=== PATIENT | male | born 1975 | race Caucasian/White ===

== ENCOUNTER 2024-06-04 15:59 | Observation (INO) | payer BC ==
[2024-06-04 16:55] LABS: BASOPHILS PERCENT AUTO 0.3 % (0.0-1.0); EOSINOPHILS ABSOLUTE AUTO 0.1 K/mm3 (0.0-0.4); EOSINOPHILS PERCENT AUTO 0.8 % (0.0-6.0); HEMATOCRIT 44.9 % (42.0-52.0); HEMOGLOBIN 15.6 gm/dl (14.0-18.0); IMMATURE GRAN ABSOLUTE AUTO 0.06 K/mm3 (0.00-0.05); IMMATURE GRAN PERCENT AUTO 0.5 % (0.0-0.4); LYMPHOCYTES PERCENT AUTO 17.4 % (24.0-44.0); MEAN CORPUSCULAR HEMOGLOBIN 29.1 pg (28.0-32.0); MEAN CORPUSCULAR HGB CONC 34.7 g/dl (32.0-36.0); MEAN CORPUSCULAR VOLUME 83.8 fl (83.0-99.0); MEAN PLATELET VOLUME 9.8 fl (9.4-12.4); MONOCYTES ABSOLUTE AUTO 0.7 K/mm3 (0.0-0.8); MONOCYTES PERCENT AUTO 6.5 % (0.0-8.0); NEUTROPHILS ABSOLUTE AUTO 8.3 K/mm3 (1.8-7.7); NEUTROPHILS PERCENT AUTO 74.5 % (41.0-71.0); PLATELET COUNT,PLT 243 K/mm3 (150-400); RED BLOOD CELL COUNT 5.36 M/mm3 (4.52-5.90); WHITE BLOOD CELL COUNT,WBC 11.18 K/mm3 (3.9-11.3)
[2024-06-04] MEDS ORDERED: Sodium Chloride 0.9% 100 ML IV SCH (17:00)
[2024-06-04] MEDS: Iopamidol 755 Mg/ML 100 ML Bottle IVPUSH ONE (17:03)
[2024-06-04 17:13] LABS: INR 0.99; PROTHROMBIN TIME 10.5 SECONDS (9.7-12.0)
[2024-06-04 17:29] LABS: A/G RATIO 1.1 (1-2); ALBUMIN 4.2 g/dl (3.4-5.0); ANION GAP 17.4 (5-15); BILIRUBIN TOTAL 0.5 mg/dL (0.2-1.0); BUN/CREATININE RATIO 8.2 (14-18); CALCIUM 9.7 mg/dL (8.5-10.1); CREATININE 1.7 mg/dL (0.7-1.3); EST CRCL DRUG DOSING (CG) 55.64 mL/min; MAGNESIUM 2.3 mg/dL (1.8-2.4); POTASSIUM,K 3.4 mEq/L (3.5-5.1); PROTEIN TOTAL,TP 8.2 g/dl (6.4-8.2)
[2024-06-04] MEDS: Acetaminophen 325 MG Tab PO ONE (18:50)
[2024-06-04] MEDS: Potassium Chloride 20 MEQ Tab.ER PO ONE (18:50)
[2024-06-04 19:43] LABS: APPEARANCE,URINE CLEAR (Clear); BILIRUBIN,URINE NEGATIVE (Negative); COLOR,URINE YELLOW (Yellow); GLUCOSE,URINE NEGATIVE (Negative); KETONES,URINE NEGATIVE (Negative); LEUKOCYTE ESTERASE,URINE NEGATIVE (Negative); NITRITE,URINE NEGATIVE (Negative); OCCULT BLOOD,URINE NEGATIVE (Negative); PH,URINE 5.5 (5.0-8.0); PROTEIN,URINE NEGATIVE (Negative); UROBILINOGEN,URINE 0.2 (0.2-1.0)
[2024-06-04] MEDS ORDERED: Labetalol 100 MG/20 ML MDV IVPUSH PRN (21:05)
[2024-06-04] MEDS ORDERED: Sennosides/Docusate Sodium 50-8.6 MG Tab PO PRN (21:10)
[2024-06-04] MEDS ORDERED: Ondansetron 4 MG/2 ML SDV IV PRN (21:10)
[2024-06-04] MEDS ORDERED: Melatonin 3 MG Tab PO PRN (21:10)
[2024-06-04] MEDS ORDERED: oxyCODONE 5 MG Tab PO PRN (21:10)
[2024-06-04] MEDS ORDERED: Morphine 2 MG/ML SYRINGE IVPUSH PRN (21:10)
[2024-06-05 04:54] LABS: HEMATOCRIT 42.8 % (42.0-52.0); HEMOGLOBIN 14.7 gm/dl (14.0-18.0); MEAN CORPUSCULAR HEMOGLOBIN 28.9 pg (28.0-32.0); MEAN CORPUSCULAR HGB CONC 34.3 g/dl (32.0-36.0); MEAN CORPUSCULAR VOLUME 84.3 fl (83.0-99.0); MEAN PLATELET VOLUME 9.7 fl (9.4-12.4); PLATELET COUNT,PLT 213 K/mm3 (150-400); RED BLOOD CELL COUNT 5.08 M/mm3 (4.52-5.90); WHITE BLOOD CELL COUNT,WBC 7.31 K/mm3 (3.9-11.3)
[2024-06-05 05:34] LABS: ALBUMIN 3.6 g/dl (3.4-5.0); ANION GAP 13.1 (5-15); BILIRUBIN TOTAL 0.4 mg/dL (0.2-1.0); BUN/CREATININE RATIO 13.1 (14-18); CALCIUM 9.1 mg/dL (8.5-10.1); CREATININE 1.3 mg/dL (0.7-1.3); EST CRCL DRUG DOSING (CG) 76.27 mL/min; MAGNESIUM 2.4 mg/dL (1.8-2.4); PHOSPHORUS 4.9 mg/dL (2.6-4.7); POTASSIUM,K 3.1 mEq/L (3.5-5.1); PROTEIN TOTAL,TP 7.3 g/dl (6.4-8.2)
[2024-06-05] MEDS: Potassium Chloride 20 MEQ Tab.ER PO ONE (08:45)
[2024-06-05] MEDS: Enoxaparin 40 MG/0.4 ML Syringe SUBCUT SCH (08:45)
[2024-06-05] MEDS: Acetaminophen 325 MG Tab PO PRN (08:47)
[2024-06-05] MEDS ORDERED: traMADol 50 MG Tab PO PRN (08:55)
[2024-06-05] MEDS ORDERED: Non-Formulary Medication 1 Each (Amphetamine Sulfate [Amphetamine Sulfate] 10 MG Tablet) PO SCH (09:00)
[2024-06-05] MEDS ORDERED: Losartan 25 MG Tab PO SCH (09:00)
[2024-06-05 09:34] LABS: TSH 3.631 uIU/mL (0.358-3.74)
[2024-06-05] MEDS: Levothyroxine 25 MCG Tab PO SCH (09:42)
[2024-06-05] MEDS: Tamsulosin 0.4 MG Cap.ER PO SCH (09:42)
[2024-06-05] MEDS: Losartan 100 MG Tab PO SCH (09:43)
[2024-06-05] MEDS: Hydrochlorothiazide 25 MG Tab PO SCH (09:43)
[2024-06-05 10:32] LABS: HEMOGLOBIN A1C 7.9 %
[2024-06-05] MEDS ORDERED: atorvaSTATin 40 MG Tab PO SCH (21:00)
== END 2024-06-05 16:39 | disposition home or self-care (01) ==
LOC: JD.ED 15:59 → JD.MS 18:40
PROVIDERS: ADMIT Student in an Organized Health Care Education/Training Program; ATTEND Student in an Organized Health Care Education/Training Program
DX: E86.0 Dehydration (principal); E87.6 Hypokalemia; I10 Essential (primary) hypertension; E11.9 Type 2 diabetes mellitus without complications; E03.9 Hypothyroidism, unspecified; E78.5 Hyperlipidemia, unspecified; N17.9 Acute kidney failure, unspecified; F17.200 Nicotine dependence, unspecified, uncomplicated; Z79.899 Other long term (current) drug therapy; Z79.84 Long term (current) use of oral hypoglycemic drugs; Z79.890 Hormone replacement therapy
CPT/HCPCS: 36415; 70450; 70496; 70498; 70551; 71045; 80053; 80061; 81003; 82550; 82947; 83036; 83735; 84100; 84443; 84484; 85025; 85027; 85610; 93005; 96372; 99285; A9270; G0378; J1650; Q9967; 93010; 99222